=== PATIENT | male | born 1990 | race Caucasian/White ===

== ENCOUNTER 2016-08-31 10:53 | Emergency (ER) | payer SELFPAY ==
[~2016-08-31] VITALS: Ht 182.9 cm; Wt 74.6 kg
[2016-08-31] MEDS ORDERED: SODIUM CHLORIDE 0.9% 1,000 ML IV ONE (11:25)
[2016-08-31] MEDS ORDERED: SODIUM CHLORIDE 0.9% 1,000ML IVBOLUS ONE (11:30)
[2016-08-31 12:19] LABS: BLOOD UREA NITROGEN 12 mg/dL (7-18)
[2016-08-31 12:23] LABS: IS PT STATUS REG ER OR PRE ER? YES
[2016-08-31 14:12] VITALS: BP 104/63
== END 2016-08-31 14:14 | disposition home or self-care (01) ==
LOC: ED 13:51
DX: R07.89 Other chest pain (principal); Z87.891 Personal history of nicotine dependence
CPT/HCPCS: 36415; 71010; 80048; 82040; 84484; 85025; 93005; 96360; 99285; J7030